=== PATIENT | female | born 1990 | race Two or more races ===

== ENCOUNTER 2016-11-07 06:09 | Inpatient (IN) ==
[2016-11-07] MEDS ORDERED: ONDANSETRON 4 MG/2 ML VIAL IV PRN ×2 (07:05→17:41)
[2016-11-07] MEDS ORDERED: BUTORPHANOL 2 MG/ML VIAL IV PRN (07:05)
[2016-11-07] MEDS ORDERED: LACTATED RINGERS 250 ML IV ONE (07:05)
[2016-11-07] MEDS ORDERED: LACTATED RINGERS 1,000 ML IV SCH ×2 (07:30→14:30)
[2016-11-07] MEDS ORDERED: OXYTOCIN/LR 20 UNIT/1,000 ML BAG IV SCH (07:30)
[2016-11-07 07:42] LABS: Basophils % 0.3 % (0.0-0.8); Eosinophils # 0.1 10*3/uL (0.0-0.87); Immature Granulocytes Absolute 0.09 #; Lymphocytes % 20.8 % (21.3-54.2); Mean Corpuscular HGB Conc 34.1 GM/DL (32-36); Mean Corpuscular Hemoglobin 32 PG (27-34); Mean Corpuscular Volume 94.7 FL (87-102); Mean Platelet Volume 10.4 FL (9.6-12.0); Monocytes # 0.6 10*3/uL (0.11-0.8); Monocytes % 6.4 % (1.7-12.7); Neutrophils # 6.6 10*3/uL (1.4-7.4); Neutrophils % 70.5 % (38.7-73.9); Platelet Count 205 T/CUMM (130-400); Red Blood Count 4.33 MC/CUMM (3.8-5.5); Red Cell Distribution Width 13.2 % (9.3-17.3); White Blood Count 9.4 T/CUMM (4-12)
[2016-11-07] MEDS ORDERED: AMPICILLIN INJ 2,000 MG in SODIUM CHLORIDE 0.9% 100 ML IV ONE (08:13)
--- NOTE | 2016-11-07 08:31 | OB/GYN History & Physical ---
History of Present Illness Chief complaint: IOL History of present illness: Ms. Eduardo Waterman is a 26 year old female at 40 weeks who is admitted today for IOL. complicated by CHL in the second trimester. No other medical or surgical issues. Allergies Allergy/AdvReac Type Severity Reaction Status Date / Time No Known Allergies Allergy Verified 11/07/16 07:04 Exam DIRECTOR OF SCIENCE - Constitutional Vitals: Vital Signs Temp Pulse Resp BP 11/07/16 07:51 72 18 103/73 11/07/16 07:36 72 18 95/65 11/07/16 07:06 97.1 F L 75 18 103/73 General appearance: no acute distress - Head Head exam: Present: normocephalic - Eye Eye exam: Present: EOMI Pupils: Present: RADHA - Respiratory Respiratory exam: Present: clear to auscultation bilaterally - Cardiovascular Cardiovascular exam: Present: regular rate and rhythm - GI/Abdominal GI/Abdominal exam: Present: soft, other (gravid, FHTs reassuring) Assessment and Plan (1) 40 weeks gestation of Status: Acute Assessment and plan: IOL at 40 weeks Continue pitocin AROm in the future Anticipate Current Visit: Yes Results - Labs CBC & BMP: 11/07/16 07:21 Quality Measures - VTE Contraindication to Pharmacological VTE Prophylaxis: Clinical assessment deems Pt at low risk, no prophalaxis needed
--- NOTE | 2016-11-07 11:53 | OB/GYN Progress Note ---
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 Feels the contractions a little more strongly Exam DEMOLITION HAMMER OPERATOR - Constitutional Vitals: Vital Signs Temp Pulse Resp BP 11/07/16 07:51 72 18 103/73 11/07/16 07:36 72 18 95/65 11/07/16 07:06 97.1 F L 75 18 103/73 General appearance: normal weight, no acute distress - Head Head exam: Present: normal inspection, normocephalic - Eye Eye exam: Present: EOMI - GI/Abdominal GI/Abdominal exam: Present: soft, other (gravid. Regular contractions. FHTs reassuring. AROM, clear, 360/-2) Results - Labs CBC & BMP: 11/07/16 07:21
[2016-11-07] MEDS ORDERED: FAMOTIDINE 20 MG/2 ML VIAL IV ONE (14:20)
[2016-11-07] MEDS ORDERED: PROMETHAZINE 25 MG/1 ML VIAL IM ONE (14:20)
[2016-11-07] MEDS ORDERED: LACTATED RINGERS 250 ML IV PRN (14:20)
[2016-11-07] MEDS ORDERED: fentaNYL 2 MCG/ROPIV 0.2% EPID 150 ML EPIDURAL SCH (14:20)
[2016-11-07] MEDS ORDERED: CITRIC ACID/SODIUM CITRATE 30 ML UDCUP PO ONE (14:20)
[2016-11-07] MEDS ORDERED: diphenhydrAMINE 50 MG/1 ML VIAL IV PRN ×2 (14:20)
[2016-11-07] MEDS ORDERED: hydrOXYzine HCL 25 MG/1 ML VIAL IM PRN (14:20)
[2016-11-07] MEDS ORDERED: ePHEDrine 50 MG/ML AMP IV PRN (14:20)
[2016-11-07] MEDS ORDERED: BENZOCAINE 20%/MENTHOL 0.5% SPRAY 56 GM CAN TOP PRN (17:41)
[2016-11-07] MEDS ORDERED: ACETAMINOPHEN 325 MG TABLET PO PRN (17:41)
[2016-11-07] MEDS ORDERED: LANOLIN 50% CREAM 0.3 OZ TUBE TOP PRN (17:41)
[2016-11-07] MEDS ORDERED: BISACODYL 10 MG SUPP RECTAL PRN (17:41)
[2016-11-07] MEDS ORDERED: MEASLES/MUMPS/RUBELLA VACCINE 0.5 ML VIAL SUBCUT ONE (17:41)
[2016-11-07] MEDS ORDERED: DIPH/TET/ACEL PERT BOOSTER VACCINE 0.5 ML VIAL IM ONE (17:41)
[2016-11-07] MEDS ORDERED: HYDROCORTISONE 2.5% RECTAL CREAM 30 GM TUBE TOP PRN (17:41)
[2016-11-07] MEDS ORDERED: oxyCODONE/ACETAMINOPHEN 5-325 MG TABLET PO PRN (17:41)
[2016-11-07] MEDS ORDERED: OXYTOCIN/LR 20 UNIT/1,000 ML BAG IV ONE (17:41)
[2016-11-07] MEDS ORDERED: RHO(D) IMMUNE GLOBULIN 300 MCG SYRINGE IM ONE (17:41)
[2016-11-07] MEDS ORDERED: WITCH HAZEL PADS 100/JAR TOP PRN (17:41)
--- NOTE | 2016-11-07 17:41 | Event Note ---
EVENT NOTE of female in [facility] presentation. Pt complete ~ 1630. Pushed for ~ 15 minutes and successfully delivered. 6lbs 15 oz with APGARS of 9/9. Repair of right labial laceration with 4.0 vicryl, repair of right vaginal lac with 3.0 vicryl, and repair of midline partial second with 3.0 vicryl EBL 400 cc. Spontaneous delivery of intact placenta. NICU present for delivery Mom and baby doing well.
[2016-11-07 17:45] LABS: Cord Arterial Blood HCO3 26.6 MMOL/L
[2016-11-07 17:52] LABS: Cord Venous Blood HCO3 23.9 MMOL/L; Cord Venous Blood PCO2 45.9 MMHG; Cord Venous Blood PO2 28.1 MMHG
[2016-11-07] MEDS: DOCUSATE SODIUM 100 MG CAPSULE PO SCH (21:14)
[2016-11-08 06:47] LABS: Basophils % 0.1 % (0.0-0.8); Eosinophils # 0.1 10*3/uL (0.0-0.87); Eosinophils % 0.4 % (0.00-10.9); Hematocrit 30.9 VOL% (35.7-47.0); Immature Granulocytes % 0.9 %; Immature Granulocytes Absolute 0.13 #; Lymphocytes # 2.2 10*3/uL (1.4-4.0); Lymphocytes % 15.6 % (21.3-54.2); Mean Corpuscular Hemoglobin 33 PG (27-34); Mean Corpuscular Volume 93.4 FL (87-102); Mean Platelet Volume 10.7 FL (9.6-12.0); Monocytes % 7.1 % (1.7-12.7); Neutrophils # 10.5 10*3/uL (1.4-7.4); Neutrophils % 75.9 % (38.7-73.9); Platelet Count 175 T/CUMM (130-400); Red Cell Distribution Width 13.2 % (9.3-17.3)
[2016-11-08 06:48] LABS: Hemoglobin 10.8 GM/DL (12.0-16.0); Red Blood Count 3.31 MC/CUMM (3.8-5.5); White Blood Count 13.9 T/CUMM (4-12)
--- NOTE | 2016-11-08 08:11 | OB/GYN Progress Note ---
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 Exam SENIOR STAFF CONSULTANT - Constitutional Vitals: Vital Signs Temp Pulse Resp BP Pulse Ox 11/08/16 04:15 97.1 F L 87 20 95/64 99 11/07/16 23:40 97.9 F 79 20 95/59 98 11/07/16 21:40 80 18 101/63 99 11/07/16 20:40 97.7 F 78 20 108/60 99 11/07/16 16:00 98.0 F 69 18 104/54 11/07/16 12:03 98.0 F 77 18 104/60 General appearance: normal weight, no acute distress - Head Head exam: Present: normal inspection, normocephalic - Eye Pupils: Present: RADHA - GI/Abdominal GI/Abdominal exam: Present: soft. Absent: tenderness Results - Labs CBC & BMP: 11/08/16 06:19
[2016-11-08] MEDS: DOCUSATE SODIUM 100 MG CAPSULE PO SCH ×2 (10:09→20:00)
--- NOTE | 2016-11-08 15:38 | Anesthesia Post-Op ---
Anesthesia Post OP - Post Ansesthetic Evaluation Patient seen in post op: Yes Resp: within normal limits CV: within normal limits Mental: within normal limits Temp: within normal limits [id number]: within normal limits Nausea and Vomiting: within normal limits Pain: within normal limits
[2016-11-08] MEDS: IBUPROFEN 800 MG TABLET PO PRN (19:50)
[2016-11-09 07:49] VITALS: BP 104/72
--- NOTE | 2016-11-09 08:23 | Discharge Summary ---
Hospital Course - Hospital Course Hospital Course: routine course without complication. Feels sore today but ready to go home. Diagnosis - Discharge Diagnosis (1) 40 weeks gestation of Status: Acute (2) (normal spontaneous vaginal delivery) Status: Acute Discharge Plan - Discharge Data Disposition: Disch To Home/Self Care Condition at Discharge: Stable Discharge Diet: advance to your usual diet Activity: other (routine ) Hygiene: may shower Weight Bearing at Discharge: full weight bearing Driving: no restrictions Contact your physician if you experience:: fever over 101, Difficulty voiding, Redness or swelling - Discharge Medications New Ibuprofen Tab [Motrin Tab] 800 mg PO Q6H PRN #30 tablet PRN Reason: Pain Moderate (4-7) - Follow Up or Referral - Forms/Instructions Exam - Constitutional Vitals: Period Temp Pulse Resp BP Sys/Odom Pulse Ox Last 24 Hr 97.4 F-98.9 F 67-96 16-18 90-104/58-72 97-100 General appearance: normal weight, no acute distress - Head Head exam: Present: normal inspection, normocephalic - Eye Eye exam: Present: EOMI Pupils: Present: RADHA - GI/Abdominal GI/Abdominal exam: Present: soft. Absent: tenderness DS: Provider Date of admission: 11/07/16 07:06 Primary care physician: . No PCP Attending physician on admission: Jacqui Voss MD Consults: 11/07/16 17:42 Consult to [facility] [CONS] Routine Consult [facility]etter: Breast Feeding Discharging clinician: Jacqui Voss MD
[2016-11-09] MEDS: DOCUSATE SODIUM 100 MG CAPSULE PO SCH (08:50)
[2016-11-09] MEDS: IBUPROFEN 800 MG TABLET PO PRN (08:50)
== END 2016-11-09 11:20 | disposition home or self-care (01) | DRG 775 ==
LOC: N.LDOUT 06:09 → N.LD 06:10 → N.OB 20:40
PROVIDERS: ADMIT Obstetrics & Gynecology; ATTEND Obstetrics & Gynecology